=== PATIENT | female | born 1980 | race Hispanic/Latino ===

== ENCOUNTER 2019-05-03 20:44 | Emergency (ER) | payer MEDICAID ==
[2019-05-03] MEDS ORDERED: IBUPROFEN 200 MG TAB ONE (20:52)
== END 2019-05-03 21:55 | disposition home or self-care (01) ==
LOC: EDH 20:44
DX: S83.8X2A Sprain of other specified parts of left knee, initial encounter (principal); S93.402A Sprain of unspecified ligament of left ankle, initial encounter; M79.7 Fibromyalgia; M06.9 Rheumatoid arthritis, unspecified; M19.90 Unspecified osteoarthritis, unspecified site; M81.0 Age-related osteoporosis without current pathological fracture; W10.8XXA Fall (on) (from) other stairs and steps, initial encounter; Y93.89 Activity, other specified; Y92.89 Other specified places as the place of occurrence of the external cause; Y99.8 Other external cause status
CPT/HCPCS: 73562; 73610

== ENCOUNTER 2019-08-13 18:27 | Emergency (ER) | payer MEDICAID ==
[2019-08-13] MEDS ORDERED: KETOROLAC TROMETHAMINE 60 MG/2 ML VIAL ONE (18:58)
[2019-08-13] MEDS ORDERED: DEXAMETHASONE SOD PHOSPHATE 10MG/ML 1ML VIAL ONE (18:58)
== END 2019-08-13 19:45 | disposition home or self-care (01) ==
LOC: EDH 18:27
DX: M25.562 Pain in left knee (principal); M25.561 Pain in right knee; M79.662 Pain in left lower leg; M79.661 Pain in right lower leg; G89.29 Other chronic pain; M06.9 Rheumatoid arthritis, unspecified; M19.90 Unspecified osteoarthritis, unspecified site; M79.7 Fibromyalgia; Z90.710 Acquired absence of both cervix and uterus
CPT/HCPCS: 96372 ×2; 99284; J1100; J1885

== ENCOUNTER 2019-10-17 10:32 | Emergency (ER) | payer MEDICAID ==
[2019-10-17] MEDS ORDERED: KETOROLAC TROMETHAMINE 30MG/ML ONE (11:33)
== END 2019-10-17 11:39 | disposition home or self-care (01) ==
LOC: EDH 10:32
DX: M79.672 Pain in left foot (principal); G89.29 Other chronic pain; M19.90 Unspecified osteoarthritis, unspecified site; M06.9 Rheumatoid arthritis, unspecified; M81.0 Age-related osteoporosis without current pathological fracture; Z90.49 Acquired absence of other specified parts of digestive tract; Z90.710 Acquired absence of both cervix and uterus
CPT/HCPCS: 73630; 96372; 99283; J1885

== ENCOUNTER → 2020-01-09 | Outpatient (CLI) | payer MEDICAID ==
[~2020-01-09] MED LIST: IOHEXOL-350 50ML VIAL IV ONE
== END | disposition home or self-care (01) ==
LOC: RAH 14:17
PROVIDERS: ATTEND Family Medicine
DX: R91.1 Solitary pulmonary nodule (principal)
CPT/HCPCS: 71260; Q9967

== ENCOUNTER 2020-12-07 11:31 | Emergency (ER) | payer MEDICAID | END 2020-12-07 11:42 | disposition home or self-care (01) | LOC: EDH 11:31 | DX: G89.29 Other chronic pain (principal); M25.561 Pain in right knee; M79.7 Fibromyalgia; M19.90 Unspecified osteoarthritis, unspecified site; M81.0 Age-related osteoporosis without current pathological fracture; Z53.21 Procedure and treatment not carried out due to patient leaving prior to being seen by health care provider ==

== ENCOUNTER 2021-05-26 00:12 | Emergency (ER) | payer MEDICAID ==
[~2021-05-26] VITALS: Ht 170.2 cm; Wt 65.3 kg
[2021-05-26] MEDS ORDERED: KETOROLAC 30MG VIAL (30MG/ML) IM ONE (02:00)
[2021-05-26] MEDS ORDERED: NEOMY SULF/BACITRA/POLYMYXIN B 1 EACH PACKET TP ONE (02:16)
[2021-05-26] MEDS ORDERED: IBUP-2077 PO (02:25)
[2021-05-26] MEDS ORDERED: ACET1TAB25 PO (02:25)
[2021-05-26 02:37] VITALS: BP 133/79
== END 2021-05-26 02:40 | disposition home or self-care (01) ==
LOC: EDH 00:12
DX: T23.201A Burn of second degree of right hand, unspecified site, initial encounter (principal); T31.0 Burns involving less than 10% of body surface; M06.9 Rheumatoid arthritis, unspecified; X10.2XXA Contact with fats and cooking oils, initial encounter; Y93.G3 Activity, cooking and baking; Y92.89 Other specified places as the place of occurrence of the external cause; Y99.8 Other external cause status
CPT/HCPCS: 16020; 96372; 99283; J1885

== ENCOUNTER 2021-07-08 17:13 | Emergency (ER) | payer MEDICAID ==
[~2021-07-08] VITALS: Ht 170.2 cm; Wt 71.7 kg
[~2021-07-08 17:13] MED LIST changes: +ACET1TAB25 PO; +IBUP-2077 PO; -IOHEXOL-350 50ML VIAL IV ONE
[2021-07-08 17:14] VITALS: BP 137/90
[2021-07-08] MEDS ORDERED: IBUP-2070 PO (20:26)
[2021-07-08] MEDS ORDERED: ACET1TAB25 PO (20:26)
[2021-07-08] MEDS ORDERED: ACETAMINOPHEN WITH CODEINE 1 TAB TAB PO ONE (20:30)
[2021-07-08] MEDS ORDERED: KETOROLAC 30MG VIAL (30MG/ML) IM ONE (20:30)
[2021-07-08] MEDS ORDERED: ACETAMINOPHEN WITH CODEINE 1 TAB TAB ONE (20:35)
[2021-07-08] MEDS ORDERED: KETOROLAC 30MG VIAL (30MG/ML) ONE (20:35)
[2021-07-08] MEDS ORDERED: CYCL5TAB PO (20:38)
== END 2021-07-08 20:50 | disposition home or self-care (01) ==
LOC: EDH 17:13
DX: S60.212A Contusion of left wrist, initial encounter (principal); M19.90 Unspecified osteoarthritis, unspecified site; M41.9 Scoliosis, unspecified; M79.7 Fibromyalgia; Z79.1 Long term (current) use of non-steroidal anti-inflammatories (NSAID); X58.XXXA Exposure to other specified factors, initial encounter; Y93.89 Activity, other specified; Y92.89 Other specified places as the place of occurrence of the external cause; Y99.8 Other external cause status
CPT/HCPCS: 29260; 73110; 96372; 99283; J1885